=== PATIENT | female | born 1975 | race Hispanic/Latino ===

== ENCOUNTER → 2020-06-14 | Day surgery (SDC) | payer MEDICARE, OTHER ==
[~2020-06-14] MED LIST: ASPIRIN81 MG PO; FENTANYL CITRATE/PF 100MCG/2 ML INJ ONE; LIDOCAINE HCL 2% LOCAL INJ 5 ML SDV VIAL INJ ONE; LIPITOR10 MG PO; LOSARTAN-HCTZ1 EAC2 PO; METOPROLOL SUCC25 MG PO; MIDAZOLAM HCL 2 MG/2 ML VIAL ONE; PROPOFOL IV EMULSION 10 MG/ML 20 ML VIAL ONE; VENLAFAXINE HC150 MG PEG
--- NOTE | 2020-06-14 07:15 | NUR ---
SPIRITUAL CARE - Pre-Surgery Assessment: Pt in bed. Pt's mom at bedside. Pt reported supportive attention from family and friends. Intervention: [employer] President provided pastoral presence, hospitality, and sympathetic listening. Acquainted pt with availability of information engineer while hospitalized. Outcome: Pt expressed appreciation for visit. No need for follow up indicated at this time. [facility] O: [phone]
[2020-06-14 08:30] VITALS: BP 129/75
--- NOTE | 2020-06-14 10:15 | Operative Report ---
DATE OF PROCEDURE: 06/14/2020 SURGEON: Seth Bishop MD PROCEDURE: EGD with biopsies and esophageal dilatation. REFERRING PHYSICIAN: Aaron Charles DO. INDICATIONS FOR EGD: Dysphagia to solids. MEDICATIONS: The patient was done under MAC, please see anesthesiologist's note. PROCEDURE IN DETAIL: With the patient in left lateral decubitus position, flexible fiberoptic Olympus gastroscope was introduced into the esophagus under direct visualization without any difficulty. There was some patchy erythema noted in distal esophagus. The scope was then advanced with ease into the stomach traversing a small sliding hiatal hernia. Mucosa overlying the antrum and the body revealed some patchy erythema and [id number] edema, and biopsies were obtained and sent to stain for H pylori. Pylorus was of normal contour and shape, was intubated with ease and the scope was advanced all the way to the second portion of the duodenum. The scope was then withdrawn slowly, mucosa overlying the proximal second portion and the duodenal bulb appeared to be within normal limits. The scope was then withdrawn back into the stomach and retroflexed and mucosa overlying the fundus and cardia appeared to be within normal limits. The scope was subsequently withdrawn. The esophagus was then dilated to size 54-He[place]. The patient tolerated procedure well. IMPRESSION: 1. Distal esophagitis. 2. Esophagus dilated to size 54-Hebrew [place]. 3. Small sliding hiatal hernia. 4. Gastritis, biopsied and biopsies sent to stain for H pylori. PLAN: Follow up histology. Initiate Protonix 40 mg one p.o. q.a.m. a.c. Seth Bishop MD [facility] /[id number] cc: Aaron Charles DO
== END | disposition home or self-care (01) ==
LOC: OR 05:54
PROVIDERS: ATTEND Internal Medicine Gastroenterology
DX: K20.90 Esophagitis, unspecified without bleeding (principal); K29.70 Gastritis, unspecified, without bleeding; K44.9 Diaphragmatic hernia without obstruction or gangrene; I10 Essential (primary) hypertension; E03.9 Hypothyroidism, unspecified; I69.351 Hemiplegia and hemiparesis following cerebral infarction affecting right dominant side; F32.9 Major depressive disorder, single episode, unspecified; E78.5 Hyperlipidemia, unspecified; Z91.041 Radiographic dye allergy status; Z01.810 Encounter for preprocedural cardiovascular examination; Z01.812 Encounter for preprocedural laboratory examination; Z11.59 Encounter for screening for other viral diseases; Z79.82 Long term (current) use of aspirin; Z68.30 Body mass index [BMI] 30.0-30.9, adult
CPT/HCPCS: 36415; 43239; 43450; 84702; 93005; J2001; J2704; U0002; J2250; J3010

== ENCOUNTER 2021-12-25 11:05 | Emergency (ER) | payer MEDICARE ==
[~2021-12-25] VITALS: Ht 154.9 cm; Wt 83.9 kg
[~2021-12-25 11:05] MED LIST changes: -FENTANYL CITRATE/PF 100MCG/2 ML INJ ONE; -LIDOCAINE HCL 2% LOCAL INJ 5 ML SDV VIAL INJ ONE; -MIDAZOLAM HCL 2 MG/2 ML VIAL ONE; -PROPOFOL IV EMULSION 10 MG/ML 20 ML VIAL ONE
[2021-12-25] MEDS ORDERED: DIATRIZOATE MEGL/DIATRIZOA SOD 30 ML BTL PO ONE (13:10)
== END 2021-12-25 14:47 | disposition home or self-care (01) ==
LOC: ER 12:18
DX: K94.23 Gastrostomy malfunction (principal); F03.90 Unspecified dementia, unspecified severity, without behavioral disturbance, psychotic disturbance, mood disturbance, and anxiety; I10 Essential (primary) hypertension; E78.5 Hyperlipidemia, unspecified; Z86.73 Personal history of transient ischemic attack (TIA), and cerebral infarction without residual deficits
CPT/HCPCS: 74018; 99283

== ENCOUNTER 2022-03-12 07:03 | Emergency (ER) | payer MEDICARE, OTHER ==
[~2022-03-12] VITALS: Ht 154.9 cm; Wt 83.9 kg
== END 2022-03-12 09:06 | disposition home or self-care (01) ==
LOC: ER 07:06
DX: Z43.1 Encounter for attention to gastrostomy (principal); I10 Essential (primary) hypertension; E78.5 Hyperlipidemia, unspecified; Z86.73 Personal history of transient ischemic attack (TIA), and cerebral infarction without residual deficits
CPT/HCPCS: 99283

== ENCOUNTER 2022-03-22 07:03 | Emergency (ER) | payer MEDICARE, OTHER ==
[~2022-03-22] VITALS: Ht 154.9 cm; Wt 83.9 kg
[~2022-03-22 07:03] MED LIST changes: +AMIODARONE HCL100 MG PEG; +AMOXICILLI400 MG/5 M PEG; +ELIQUIS5 MG PEG; +JEVITY 1.2 CAL237 ML PEG; +LIPITOR20 MG PEG; +NUEDEXTA 20-101 EACH PEG; +QUESTRAN PACKET4 GM PEG; +TOPROL XL25 MG PEG; +ZOLOFT100 MG PEG; +azithromycin PEG
[2022-03-22] MEDS ORDERED: SODIUM CHLORIDE 0.9% 500ML 500 ML IV ONE (08:00)
[2022-03-22] MEDS ORDERED: SODIUM CHLORIDE 0.9% 250ML 250 ML ONE (11:47)
[2022-03-22] MEDS ORDERED: IOPAMIDOL 300MG/ML 100 ML INFUS..BTL IV ONE (11:47)
== END 2022-03-22 13:05 | disposition home or self-care (01) ==
LOC: ER 07:09
DX: Z43.1 Encounter for attention to gastrostomy (principal); I10 Essential (primary) hypertension; E78.5 Hyperlipidemia, unspecified; Z86.73 Personal history of transient ischemic attack (TIA), and cerebral infarction without residual deficits
CPT/HCPCS: 49440; 74470; 99284; C1769; C1892 ×2; J7050; Q9967

== ENCOUNTER 2023-01-20 11:13 | Emergency (ER) | payer MEDICARE, OTHER ==
[~2023-01-20] VITALS: Ht 154.9 cm; Wt 83.9 kg
[2023-01-20 11:22] VITALS: O2SAT 99
== END 2023-01-20 11:40 | disposition home or self-care (01) ==
LOC: ER 11:17
DX: Z43.1 Encounter for attention to gastrostomy (principal); I10 Essential (primary) hypertension; E78.5 Hyperlipidemia, unspecified; Z86.73 Personal history of transient ischemic attack (TIA), and cerebral infarction without residual deficits
CPT/HCPCS: 99282

== ENCOUNTER 2024-02-22 20:07 | Emergency (ER) | payer MEDICARE, OTHER ==
[~2024-02-22] VITALS: Ht 154.9 cm; Wt 83.9 kg
[2024-02-22] MEDS ORDERED: DIATRIZOATE MEGL/DIATRIZOA SOD 30 ML BTL PO ONE (21:16)
[2024-02-22 22:25] VITALS: PULSE 59; RESP 18; TEMP 98.6; O2SAT 98
== END 2024-02-22 22:38 | disposition home or self-care (01) ==
LOC: ER 20:10
DX: Z43.1 Encounter for attention to gastrostomy (principal); I10 Essential (primary) hypertension; E78.5 Hyperlipidemia, unspecified; Z99.3 Dependence on wheelchair; Z86.73 Personal history of transient ischemic attack (TIA), and cerebral infarction without residual deficits
CPT/HCPCS: 43762; 74018; 99284; Q9963

== ENCOUNTER 2024-11-12 10:03 | Emergency (ER) | payer MEDICARE, OTHER ==
[2024-11-12 11:05] VITALS: PULSE 72; RESP 16; TEMP 97.7
[2024-11-12 11:56] VITALS: BP 129/71; PULSE 89; RESP 17; TEMP 97.9; O2SAT 98
== END 2024-11-12 12:00 | disposition home or self-care (01) ==
LOC: ER 10:19
DX: Z43.1 Encounter for attention to gastrostomy (principal); Z86.73 Personal history of transient ischemic attack (TIA), and cerebral infarction without residual deficits
CPT/HCPCS: 99283

== ENCOUNTER 2024-11-14 10:45 | Emergency (ER) | payer MEDICARE, OTHER ==
[~2024-11-14] VITALS: Ht 154.9 cm; Wt 54.4 kg
[2024-11-14 12:13] VITALS: TEMP 97; O2SAT 95
[2024-11-14 13:09] VITALS: PULSE 66; RESP 20
== END 2024-11-14 15:16 | disposition home or self-care (01) ==
LOC: ER 12:47
DX: Z43.1 Encounter for attention to gastrostomy (principal); Z86.73 Personal history of transient ischemic attack (TIA), and cerebral infarction without residual deficits
CPT/HCPCS: 74018; 99283